=== PATIENT | male | born 1995 | race Caucasian/White ===

== ENCOUNTER 2024-04-25 14:50 | Emergency (ER) | payer MEDICAID, SELFPAY ==
[2024-04-25 14:56] VITALS: PULSE 72; RESP 17; O2SAT 98
[2024-04-25 15:10] VITALS: BP 143/106; PULSE 88; RESP 19; TEMP 36.4; O2SAT 99; BMI 17.9
--- NOTE | 2024-04-25 15:11 | XR_ITS ---
EXAMINATION: XR chest 2V ORDERING PROVIDER: LINDY Nazario HISTORY: cough fever TECHNIQUE: PA and Lateral radiographs of the chest. COMPARISON: 11/07/2010, chest radiographs. FINDINGS: Lungs: Consolidation. Similar-appearing right lower lobe 3 mm calcified granuloma, likely sequela of granulomatous disease. Pleura: No pneumothorax or pleural effusion. Cardiomediastinal Silhouette: Normal. Soft Tissues/Bones: Normal. IMPRESSION: No acute pulmonary findings.
--- NOTE | 2024-04-25 15:12 | EDNOTE_ITS ---
Upper Respiratory Inf. RME/HPI General Stated Complaint: FLU LIKE SYMPTOMS Time Seen by Provider: 04/25/24 15:12 Source: patient Arrival date/time: 04/25/24 14:50 28-year-old male with no known medical history presents to the emergency room with a chief complaint of fever, coughing, congestion, body aches x 2 days. Patient states his and daughter tested positive for influenza A. Mode of arrival: ambulatory Limitations: no limitations Related Data Previous Rx's ?Medication ?Instructions ?Recorded acetaminophen 325 mg capsule 650 mg (2 x 325 mg) PO QI D PRN 04/25/24 fever or pain 7 days #30 caps albuterol sulfate 90 mcg/actuation 2 inh inhalation Q6 H PRN shortness 04/25/24 breath activated powder inhaler of breath or wheezing #1 ea Allergies Allergy/AdvReac Type Severity Reaction Status Date / Time Bee Stings Allergy Severe GENERALIZED Uncoded 04/25/24 15:00 SWELLING, DYSPNEA Review of Systems Review of Systems Systems Reviewed: All systems reviewed, normal except as documented Constitutional Constitutional: Reports system reviewed and no additional complaints, except as documented, Denies fatigue, Reports fever(s), Reports headache(s) and Reports weakness Eyes Eyes: Reports system reviewed and no additional complaints, except as documented, Denies blurry vision and Denies change in vision ENT Ears, Nose, Mouth, and Throat: Reports system reviewed and no additional complaints, except as documented, Denies otalgia, Reports headache(s), Denies nasal congestion, Denies throat swelling and Denies vertigo Cardiovascular Cardiovascular: Reports system reviewed and no additional complaints, except as documented, Denies chest pain, Denies dyspnea and Denies dyspnea on exertion Respiratory Respiratory: Reports system reviewed and no additional complaints, except as documented, Reports chest congestion, Reports cough, Denies dyspnea, Denies dyspnea on exertion and Denies wheezing Gastrointestinal Gastrointestinal: Reports system reviewed and no additional complaints, except as documented, Denies abdominal pain, Denies cramping, Denies nausea and Denies vomiting Genitourinary Genitourinary: Reports system reviewed and no additional complaints, except as documented, Denies dysuria and Denies hematuria Musculoskeletal Musculoskeletal: Reports system reviewed and no additional complaints, except as documented and Denies back pain Integumentary/Breasts Skin/Breast: Reports system reviewed and no additional complaints, except as documented and Denies wounds Neurologic Neurologic: Reports system reviewed and no additional complaints, except as documented, Denies confusion, Reports headache(s), Denies lack of coordination, Denies vertigo and Reports weakness Psychiatric Psychiatric: Reports system reviewed and no additional complaints, except as documented, Denies anxiety, Denies confusion, Denies depression, Denies paranoia, Denies suicidal ideation and Denies tactile hallucinations Endocrine Endocrine: Reports system reviewed and no additional complaints, except as documented and Denies fatigue Hematologic/Lymphatic Hematologic/Lymphatic: Reports system reviewed and no additional complaints, except as documented and Denies lymphadenopathy Allergic/Immunologic Allergic/Immunologic: Reports system reviewed and no additional complaints, except as documented, Denies throat swelling, Denies urticaria and Denies wheezing Past Medical History Social History SMOKING STATUS: Current every day smoker ED Exam General Limitations: Present no limitations General appearance: Present alert and in no apparent distress Head Head exam: Present atraumatic Eye Eye exam: Present normal appearance, PERRL and EOMI ENT ENT exam: Present normal exam, normal oropharynx and mucous membranes moist Neck Neck exam: Present normal inspection, full ROM and trachea midline Chest Chest inspection: Present normal inspection and symmetric chest wall rise Respiratory Respiratory exam: Present normal lung sounds bilaterally; Absent respiratory distress, wheezes, stridor, accessory muscle use or prolonged expiratory phase Cardiovascular Cardiovascular exam: Present regular rate, normal rhythm and normal heart sounds Abdominal Exam Abdominal exam: Present soft and normal bowel sounds Extremities Exam Extremities exam: Present normal inspection and full ROM Back Exam Back exam: Present normal inspection and full ROM Neurological Exam Neurological exam: Present alert, oriented X3 and CN II-XII intact Psychiatric Psychiatric exam: Present normal affect and normal mood Skin Skin exam: Present warm, dry, intact and normal color Course Quality Measures none Orders Category Date Time Status Bedside COVID-19 Antigen Test NOW Care 04/25/24 15:11 Active Bedside Influenza A&B Antigen Test NOW Care 04/25/24 15:11 Completed XR chest 2V Stat Exams 04/25/24 15:11 Completed Vital Signs Vital signs: Vital Signs Temperature 97.6 F 04/25/24 15:10 Pulse Rate 88 04/25/24 15:10 Respiratory Rate 19 04/25/24 15:10 Blood Pressure 143/106 H 04/25/24 15:10 Pulse Oximetry (%) 99 04/25/24 15:10 Oxygen Delivery Method Room Air 04/25/24 15:10 O2 saturation 99% within normal limits Upper Respiratory Infection MDM Narrative MDM Narrative:: 28-year-old male with no known medical history presents to the emergency room with a chief complaint of fever, coughing, congestion, body aches x 2 days. Patient states his and daughter tested positive for influenza A. Patient is hemodynamically stable and in no apparent distress. Patient is not tachypneic tachycardic he is afebrile and O2 saturation is 99% on room air Patient tested positive for influenza A Patient was discharged and educated to follow-up with primary care provider in the next 24 to 48 hours and return to the emergency room for any evidence of worsening signs or symptoms Patient data External records reviewed:: [facility] previous records Clinical information provided by:: patient Social determinants that could affect healthcare access:: none Patient has the following chronic illnesses:: No chronic illness How is presenting disease/condition affected by chronic disease/condition?: no chronic disease Evaluation data The following diagnostics were reviewed and interpreted by me:: lab results and radiology exam(s) Lab and/or radiology exams considered but not ordered:: Labs and radiology exams considered and ordered Interpretation Summary: Chest [id number]: Lungs: Consolidation. Similar-appearing right lower lobe 3 mm calcified granuloma, likely sequela of granulomatous disease. Pleura: No pneumothorax or pleural effusion. Cardiomediastinal Silhouette: Normal. Soft Tissues/Bones: Normal. IMPRESSION: No acute pulmonary findings. Medications / Prescriptions Medications or Prescriptions considered but not ordered:: Medication not given Medication administrations:: Medication not given Consultations Consultation(s) initiated? (list below): No Diagnosis Upper Respiratory Differential Diagnosis: upper respiratory infection, sinusitis, viral infection, bronchitis and influenza Most likely diagnosis given after review of the tests above:: Influenza A Admission Indicated Admission indicated?: not indicated Admission Request Was there a request for admission?: No Disposition Plan Disposition Plan: Discharge Discharge Attestation Discharge Attestation: The patient and all family members were given an opportunity to ask questions and understood the discharge instructions. Discharge instructions specifically effects, indications for sooner follow up or return to the emergency department, and the expected course of current diagnosis. Patient condition: Stable Discharge Plan Plan Patient Disposition: HOME (Self Care) Disposition Comment: Stable Prescriptions/Referrals Prescriptions/Med Rec: New acetaminophen 325 mg capsule 650 mg PO QID PRN (Reason: fever or pain) 7 Days Qty: 30 0RF albuterol sulfate 90 mcg/actuation aerosol powdr breath activated 2 inh inhalation Q6H PRN (Reason: shortness of breath or wheezing) Qty: 1 0RF Referrals: No Primary/Family,Physician [Primary Care Provider] - In 1 week Problem List Clinical Impression: Influenza A Patient/Caregiver Discharge Instructions Education Materials: ED Influenza (Adult) Additional Instructions: Please follow-up with your primary care provider in the next 24 to 48 hours. You tested positive for influenza. The treatment for this is symptom management. Please continue to take Tylenol and ibuprofen for fever management. Please increase your oral fluid intake. For any evidence of worsening signs or symptoms please return to the emergency room immediately Print Language: Citizen Of [place] Stand Alone Forms: Guillermina Award Info., Patient Portal Info Letter PA/AUTOMATED PROCESS OPERATOR Supervising Physician PA/AUTOMATED PROCESS OPERATOR Supervising Physician: Dr. Mckeon
== END 2024-04-25 16:31 | disposition home or self-care (01) ==
PROVIDERS: Emergency Provider Emergency Medicine
DX: J10.1 Influenza due to other identified influenza virus with other respiratory manifestations (principal)
CPT/HCPCS: 71046; 87400; 87811; 99283

== ENCOUNTER 2025-01-22 10:35 | Emergency (ER) | payer MEDICAID, SELFPAY ==
--- NOTE | 2025-01-22 10:49 | XR_ITS ---
Upright PA chest film: CLINICAL HISTORY: Cough and shortness of breath for 2 days Study is performed on 01/22/2025 at 11:50 8:00 a.m. Comparison is made with the previous chest film on 04/25/2024. FINDINGS: The heart and mediastinum and pulmonary vascularity all appear normal both lungs are well expanded and clear. I do not see any abnormalities involving the visible bony thorax no abnormalities are identified below the diaphragm Impression normal upright PA chest for
[2025-01-22 10:50] VITALS: BP 130/64; PULSE 101; RESP 22; TEMP 36.9; O2SAT 99
[2025-01-22] MEDS: ALBUTEROL/IPRATROPIUM (Duoneb) RT SOL 3 ML NEBU INH (11:22)
[2025-01-22 11:25] LABS: COVID-19 Antigen (In-House) Negative (Negative); Influenza A Ag Negative; Influenza B Ag Negative
[2025-01-22 11:31] VITALS: PULSE 103; RESP 20; O2SAT 99
--- NOTE | 2025-01-22 12:02 | EDNOTE_ITS ---
ED SOB =RME/HPI General Chief Complaint: Shortness of Breath/Dyspnea Stated Complaint: DYSPNEA, WANTS CXR Time Seen by Provider: 01/22/25 10:50 Source: patient Arrival date/time: 01/22/25 10:35 29-year-old male with no known medical history presents to the emergency room with a chief complaint of shortness of breath x 1 day Mode of arrival: ambulatory Limitations: no limitations Related Data Previous Rx's ?Medication ?Instructions ?Recorded albuterol sulfate 90 mcg/actuation 2 inh inhalation Q6 H PRN shortness 04/25/24 breath activated powder inhaler of breath or wheezing #1 ea albuterol sulfate 90 mcg/actuation 2 puff inhalation Q 6H PRN 01/22/25 aerosol inhaler (Ventolin HFA) shortness of breath or wheezing #6.7 grams prednisone 20 mg tablet 40 mg (2 x 20 mg) PO QDAY 4 days 01/22/25 #8 tabs Allergies Allergy/AdvReac Type Severity Reaction Status Date / Time Bee Stings Allergy Severe GENERALIZED Uncoded 01/22/25 10:38 SWELLING, DYSPNEA Review of Systems Review of Systems Systems Reviewed: All systems reviewed, normal except as documented Constitutional Constitutional: Reports system reviewed and no additional complaints, except as documented, Denies fatigue, Denies fever(s), Denies headache(s) and Denies weakness Eyes Eyes: Reports system reviewed and no additional complaints, except as documented, Denies blurry vision and Denies change in vision ENT Ears, Nose, Mouth, and Throat: Reports system reviewed and no additional complaints, except as documented, Denies otalgia, Denies headache(s), Denies nasal congestion, Denies throat swelling and Denies vertigo Cardiovascular Cardiovascular: Reports system reviewed and no additional complaints, except as documented, Denies chest pain, Reports dyspnea and Denies dyspnea on exertion Respiratory Respiratory: Reports system reviewed and no additional complaints, except as documented, Reports chest congestion, Reports cough, Reports dyspnea, Denies dyspnea on exertion and Reports wheezing Gastrointestinal Gastrointestinal: Reports system reviewed and no additional complaints, except as documented, Denies abdominal pain, Denies cramping, Denies nausea and Denies vomiting Genitourinary Genitourinary: Reports system reviewed and no additional complaints, except as documented, Denies dysuria and Denies hematuria Musculoskeletal Musculoskeletal: Reports system reviewed and no additional complaints, except as documented and Denies back pain Integumentary/Breasts Skin/Breast: Reports system reviewed and no additional complaints, except as documented and Denies wounds Neurologic Neurologic: Reports system reviewed and no additional complaints, except as documented, Denies confusion, Denies headache(s), Denies lack of coordination, Denies vertigo and Denies weakness Psychiatric Psychiatric: Reports system reviewed and no additional complaints, except as documented, Denies anxiety, Denies confusion, Denies depression, Denies paranoia, Denies suicidal ideation and Denies tactile hallucinations Endocrine Endocrine: Reports system reviewed and no additional complaints, except as documented and Denies fatigue Hematologic/Lymphatic Hematologic/Lymphatic: Reports system reviewed and no additional complaints, except as documented and Denies lymphadenopathy Allergic/Immunologic Allergic/Immunologic: Reports system reviewed and no additional complaints, ex cept as documented, Denies throat swelling, Denies urticaria and Reports wheezing Past Medical History Social History SMOKING STATUS: Current every day smoker ED Exam General Limitations: Present no limitations General appearance: Present alert and in no apparent distress Head Head exam: Present atraumatic Eye Eye exam: Present normal appearance, PERRL and EOMI ENT ENT exam: Present normal exam, normal oropharynx and mucous membranes moist Neck Neck exam: Present normal inspection, full ROM and trachea midline Chest Chest inspection: Present normal inspection and symmetric chest wall rise Respiratory Respiratory exam: Present normal lung sounds bilaterally and wheezes; Absent respiratory distress, stridor, accessory muscle use or prolonged expiratory phase Expanded Respiratory Exam Location: Left: wheezes, Right: wheezes and Upper: wheezes Cardiovascular Cardiovascular exam: Present regular rate, normal rhythm and normal heart sounds Abdominal Exam Abdominal exam: Present soft and normal bowel sounds Extremities Exam Extremities exam: Present normal inspection and full ROM Back Exam Back exam: Present normal inspection and full ROM Neurological Exam Neurological exam: Present alert, oriented X3 and CN II-XII intact Psychiatric Psychiatric exam: Present normal affect and normal mood Skin Skin exam: Present warm, dry, intact and normal color Course Quality Measures none Orders Category Date Time Status XR chest 1V portable Stat Exams 01/22/25 10:49 Completed COVID-19 Antigen (In-House) Stat Lab 01/22/25 10:58 Completed Influenza A & B Rapid Panel Stat Lab 01/22/25 10:58 Completed Albuterol/Ipratr Rt Tracey [Duoneb Rt Tracey] Med 01/22/25 10:49 Discontinued 3 ml INH X1 ONE dexAMETHasone INJ [Decadron Inj] Med 01/22/25 10:49 Discontinued 10 mg PO X1 ONE Vital Signs Vital signs: Vital Signs Temperature 98.5 F 01/22/25 10:50 Pulse Rate 101 H 01/22/25 10:50 Respiratory Rate 22 H 01/22/25 10:50 Blood Pressure 130/64 01/22/25 10:50 Pulse Oximetry (%) 99 01/22/25 10:50 Oxygen Delivery Method Room Air 01/22/25 10:50 Shortness of Breath / Dyspnea MDM Narrative MDM Narrative:: 29-year-old male with no known medical history presents to the emergency room with a chief complaint of shortness of breath x 1 day Patient is hemodynamically stable and in no apparent distress. Patient is afebrile nontachycardic nontachypneic and O2 saturation is 99% on room air Physical examination shows bilateral upper and lower lobe wheezing. A breathing treatment and steroids were given with significant improvement to the patient's symptoms Chest x-ray was negative for any pneumonic infiltrates. COVID-19 and influenza test were both negative Patient was discharged and educated to follow-up with primary care provider in the next 24 to 48 hours and return to the emergency room for any evidence of worsening signs or symptoms Patient data External records reviewed:: [facility] previous records Clinical information provided by:: patient Social determinants that could affect healthcare access:: none Patient has the following chronic illnesses:: No chronic illness How is presenting disease/condition affected by chronic disease/condition?: no chronic disease Evaluation data The following diagnostics were reviewed and interpreted by me:: lab results and radiology exam(s) Lab and/or radiology exams considered but not ordered:: Labs and radiology exams considered and ordered Interpretation Summary: Chest [id number]: The heart and mediastinum and pulmonary vascularity all appear normal both lungs are well expanded and clear. I do not see any abnormalities involving the visible bony thorax no abnormalities are identified below the diaphragm Impression normal upright PA chest for Medications / Prescriptions Medications or Prescriptions considered but not ordered:: Medication given Medication administrations:: Medication Administration History Discontinued Medications Albuterol/Ipratropium (Albuterol/Ipratropium (Duoneb) Rt Tracey 3 Ml Nebu) 3 ml INH X1 ONE Stop: 01/22/25 10:50 Last Admin: 01/22/25 11:22 Dose: 3 ml Documented By: BHUPENDRA Dexamethasone Sodium Phosphate (Dexamethasone Sod Phos Inj 10 Mg/Ml Vial) 10 mg PO X1 ONE Stop: 01/22/25 10:50 Last Admin: 01/22/25 10:56 Dose: 10 mg Documented By: OA Medication given Consultations Consultation(s) initiated? (list below): No Diagnosis Shortness of Breath Differential Diagnosis: community acquired pneumonia, asthma with exacerbation and other (Upper respiratory infection) Most likely diagnosis given after review of the tests above:: Upper respiratory infection Admission Indicated Admission indicated?: not indicated Admission Request Was there a request for admission?: No Disposition Plan Disposition Plan: Discharge Discharge Attestation Discharge Attestation: The patient and all family members were given an opportunity to ask questions and understood the discharge instructions. Discharge instructions specifically effects, indications for sooner follow up or return to the emergency department, and the expected course of current diagnosis. Patient condition: Stable Discharge Plan Plan Patient Disposition: HOME (Self Care) Discharge Disposition comment: Stable Prescriptions/Referrals Prescriptions/Med Rec: New prednisone 20 mg tablet 40 mg PO QDAY 4 Days Qty: 8 0RF albuterol sulfate [Ventolin HFA] 90 mcg/actuation HFA aerosol inhaler 2 puff inhalation Q6H PRN (Reason: shortness of breath or wheezing) Qty: 6.7 0RF No Action albuterol sulfate 90 mcg/actuation aerosol powdr breath activated 2 inh inhalation Q6H PRN (Reason: shortness of breath or wheezing) Qty: 1 0RF Referrals: No Primary/Family,Physician [Primary Care Provider] - In 1 week Problem List Clinical Impression: Bronchitis Patient/Caregiver Discharge Instructions Education Materials: ED Bronchitis, No Antibiotic (Adult) Additional Instructions: Please follow-up with your primary care provider in the next 24 to 48 hours. X-ray was negative for any pneumonia An inhaler and steroids were sent to your pharmacy please pick them up and take them as indicated For any evidence of worsening signs or symptoms return to emergency room immediately Print Language: [place] Stand Alone Forms: Guillermina Award Info., Work/School Release, Patient Portal Info Letter PA/FIREFIGHTER TYPE ONE Supervising Physician PA/FIREFIGHTER TYPE ONE Supervising Physician: Dr. Mir
== END 2025-01-22 13:26 | disposition home or self-care (01) ==
PROVIDERS: Nurse Practitioner Family; Emergency Provider Emergency Medicine
DX: J40 Bronchitis, not specified as acute or chronic (principal); F17.210 Nicotine dependence, cigarettes, uncomplicated
CPT/HCPCS: 71045; 87502; 87811; 94640; 99283; A9270; J1100